=== PATIENT | male | born 1975 | race Caucasian/White ===

== ENCOUNTER → 2020-03-04 12:44 | Outpatient (BNVA) | payer SELFPAY | PROVIDERS: Visit Provider Nurse Practitioner Family | DX: S69.91XA Unspecified injury of right wrist, hand and finger(s), initial encounter (principal); S62.308A Unspecified fracture of other metacarpal bone, initial encounter for closed fracture; X58.XXXA Exposure to other specified factors, initial encounter | CPT/HCPCS: 73130 ==